=== PATIENT | female | born 1960 | race Caucasian/White ===

== ENCOUNTER 2020-10-12 08:23 | Emergency (ER) | payer OTHER, SELFPAY ==
--- NOTE | 2020-10-12 08:24 | XRR_ITS ---
PROCEDURE INFORMATION: Exam: XR Left Ankle Exam date and time: 10/12/2020 8:24 AM Age: 60 years old Clinical indication: Injury or trauma; Fall; Blunt trauma; Left; Patient HX: Patient states injured ankle while tubing yesterday. C/O of pain to fibular side of ankle. TECHNIQUE: Imaging protocol: XR Left ankle. Views: 3 or more views. Total images: 3 COMPARISON: No relevant prior studies available. FINDINGS: Bones/joints: Nondisplaced fracture of the distal diaphysis of the left fibula. Chronic avulsive changes are noted at the medial malleolus. No widening of the ankle mortise detected. A heel spur is present. Tiny enthesophyte is noted at the Achilles tendon insertion site. No additional fracture, subluxation, or dislocation detected. Soft tissues: Normal. XR/XR ankle LT min 3V* [id number] IMPRESSION: Nondisplaced fracture of the distal diaphysis of the left fibula.
[2020-10-12 08:44] VITALS: BP 147/96; PULSE 85; RESP 16; TEMP 36.5; O2SAT 94; BMI 41.5
--- NOTE | 2020-10-12 08:51 | W.ED.EXTPRO ---
HPI - Extremity Problem General: Chief complaint: Extremity Injury, Lower Stated complaint: LEFT ANKLE INJURY/PAIN Time Seen by Provider: 10/12/20 08:40 Source: patient Mode of arrival: ambulatory Limitations: no limitations History of Present Illness: HPI Narrative: 60-year-old female who states that she was in her tubing and was getting off and her tube in twisted her left ankle. She states this happened yesterday evening. She states that she has been having pain in that ankle and difficulty walking on it. States the pain at rest is a 3 out of 10 with any movements and 8 out of 10. Denies any knee pain denies any other injuries. Associated symptoms: Deny chest pain, fever(s) or rash Review of Systems Const: Denies: fever(s), chills, body aches or change in appetite Eyes: Denies: blurry vision or eye discomfort ENMT: Denies: throat pain or dental pain Card: Denies: chest pain Resp: Denies: dyspnea GI: Denies: abdominal pain, nausea, vomiting or diarrhea : Denies: dysuria Musc: Reports: extremity pain; Denies: neck pain or back pain Skin/Breast: Denies: rash Neuro: Denies: headache(s) Psych: Denies: depression Filemon/Lymph: Denies: easy bruising All/Imm: Denies: urticaria Physical Exam Const: COMMON NORMALS: no acute distress, patient oriented x3 and healthy appearing HENMT: COMMON NORMALS: normocephalic and atraumatic HEAD & SCALP: normocephalic and atraumatic Eye: COMMON NORMALS: Equal, round and reactive pupils present and EOMs intact bilaterally PUPIL: Yes Equal, round and reactive pupils present Neck/C-Spine: COMMON NORMALS: full ROM and supple Chest: COMMONS NORMALS: normal inspection of the chest and normal palpation of entire chest wall Resp: COMMON NORMALS: normal respiratory effort, No retractions, No use of accessory muscles and clear to auscultation bilaterally AUSCULTATION: clear to auscultation bilaterally Cardio: COMMON NORMALS: regular rate, regular rhythm and No murmurs present (Cardio) RATE: regular rate RHYTHM: regular rhythm GI: COMMON NORMALS: Normal to inspection, nondistended, normoactive bowel sounds present, Soft to palpation, non-tender and no masses PALPATION: Yes Soft to palpation Extremity: COMMON NORMALS: full ROM NARRATIVE EXTREMITY EXAM: Slight swelling to left lateral ankle with tenderness to touch no obvious deformity no signs of Achilles tendon tear Neuro: COMMON NORMALS: patient oriented x3, moves all extremities and no focal motor deficits Psych: COMMON NORMALS: mental status grossly normal, Normal thought process present and cooperative THOUGHT PROCESS: Normal thought process present Skin: COMMON NORMALS: no rashes or lesions noted and no wounds GENERAL SKIN EXAM: no rashes or lesions noted Course Vital Signs: Vital signs: Vital Signs Temperature 97.7 F 10/12/20 08:44 Pulse Rate 85 10/12/20 08:44 Respiratory Rate 16 10/12/20 08:44 Blood Pressure 147/96 10/12/20 08:44 Pulse Oximetry 94 10/12/20 08:44 MDM - Extremity (Nontraumatic) MDM Narrative: Medical decision making narrative: Patient presents with a fibula fracture from a fall. Patient was placed in a posterior splint with stirrups and placed on crutches. She is to be nonweightbearing and is to follow-up with orthopedics in 2 to 4 days. She has no other signs of injuries. Imaging Data^: Xray Ortho: Attestation: I personally reviewed and interpreted this imaging study as follows: My impression: Distal fibula fracture to the left ankle Discharge Plan Discharge Patient Disposition: Home Clinical Impression: Ankle fracture Qualifiers: Encounter type: initial encounter Fracture type: closed Laterality: left Qualified Code(s): S82.892A - Other fracture of left lower leg, initial encounter for closed fracture Condition: Stable Prescriptions: New hydrocodone-acetaminophen 5-325 mg tablet 1 tab PO Q6H PRN (Reason: pain) Qty: 14 RF: 0 Discharge Orders: Discharge ED (Routine); Ordered 10/12/20 Ordered By: Andrew Mack Referrals: Saqib Cardenas MD [Physician] - 1-3 days Discharge Diet: Advance as tolerated Discharge Activity: Resume usual activity Patient Instructions: Ankle Fracture (ED), Opioid Safety Coding Level of Care Code 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
[2020-10-12] MEDS: naproxen 500 mg Tablet PO (08:57)
--- NOTE | 2020-10-12 09:27 | PC.NURSE ---
Posterior short-leg splint w/stirrup applied R-leg. Crutches given.
--- NOTE | 2020-10-13 12:55 | DCPLANNER ---
kennel manager dog track had message to schedule a follow up appointment for patient with ortho for an ankle fracture. kennel manager dog track called the ortho clinic, spoke with Prachi, gave clinic patients information. kennel manager dog track was told that patients information would be printed and reviewed. Clinic will call patient with appointment information.
--- NOTE | 2020-10-14 12:23 | DCPLANNER ---
Patient had a follow up appointment scheduled for 10.13.[address] Cardenas at [facility] - patient did attend appointment.
== END 2020-10-12 09:30 | disposition home or self-care (01) ==
LOC: ER 09:15
PROVIDERS: Emergency Provider Emergency Medicine
DX: S82.832A Other fracture of upper and lower end of left fibula, initial encounter for closed fracture (principal); X50.1XXA Overexertion from prolonged static or awkward postures, initial encounter
CPT/HCPCS: 29515; 73610; 99283; E0114

== ENCOUNTER 2020-10-13 14:43 | Outpatient (CLI) | payer OTHER, SELFPAY | END 2020-10-13 14:44 | disposition home or self-care (01) | LOC: SPT 14:44 | PROVIDERS: Visit Provider Orthopaedic Surgery | DX: Z46.89 Encounter for fitting and adjustment of other specified devices (principal); S82.892D Other fracture of left lower leg, subsequent encounter for closed fracture with routine healing; X58.XXXD Exposure to other specified factors, subsequent encounter | CPT/HCPCS: 97760; L4361 ==

== ENCOUNTER → 2020-10-21 08:44 | Outpatient (BNVA) | payer OTHER, SELFPAY | PROVIDERS: Visit Provider Orthopaedic Surgery | DX: S82.892A Other fracture of left lower leg, initial encounter for closed fracture (principal); X58.XXXA Exposure to other specified factors, initial encounter | CPT/HCPCS: 73610 ==